=== PATIENT | female | born 1945 | race Caucasian/White ===

== ENCOUNTER 2024-02-22 15:32 | Observation (INO) ==
[2024-02-22 17:16] LABS: INR 0.97 (0.83-1.13)
[2024-02-22 17:23] LABS: Urine Appearance Clear; Urine Bilirubin Negative (Negative); Urine Blood 1+ (Negative); Urine Color Light-Yellow; Urine Glucose Negative (Negative); Urine Ketones Trace (Negative); Urine Nitrite Negative (Negative); Urine Protein Trace (Negative); Urine Specific Gravity 1.025 (1.002-1.030); Urine Urobilinogen Negative (Negative); Urine pH 5.5 (5.0-8.0)
[2024-02-22 17:35] LABS: Urine Bacteria Absent /HPF (Absent); Urine Red Blood Cell 2+(6-10/hpf) /HPF (0-Trace); Urine Squamous Epithelial Cell Present /HPF (Absent); Urine White Blood Cell Trace(0-5/hpf) /HPF (0-Trace)
[2024-02-22 17:51] LABS: ALT 18 U/L (7-52); Albumin 3.9 g/dL (3.2-5.2); Albumin/Globulin Ratio 1.6 (1-3); Alkaline Phosphatase 80 U/L (35-149); Blood Urea Nitrogen 20 mg/dL (6-24); C Reactive Protein 35.64 mg/L (<8.01); CO2 Carbon Dioxide 28 mmol/L (22-32); Calcium 10.5 mg/dL (8.6-10.3); Chloride 103 mmol/L (101-111); Creatinine, Serum 1.13 mg/dL (0.51-0.95); Globulin 2.4 g/dL (2-4); Glucose 107 mg/dL (70-100); Sodium 141 mmol/L (135-145); Total Bilirubin 0.3 mg/dL (0.2-1.0); Total Protein 6.3 g/dL (6.4-8.9); eGFR CKD-EPI 49.8 (>60)
[2024-02-22 17:52] LABS: Anion Gap 10 mmol/L (2-16)
[2024-02-22] MEDS ORDERED: Iodixanol (CONTRAST) 320 MG/ML 100 ML SDV IV ONE (19:19)
[2024-02-22] MEDS: Lactated Ringers 1000 ml BAG 1,000 ML IV SCH (20:01)
[2024-02-22 20:10] LABS: ABS Basophils 0.1 10^3/uL (0.0-0.1); ABS Eosinophils 0.4 10^3/uL (0.0-0.5); ABS Monocytes 0.9 10^3/uL (0.0-0.9); ABS Neutrophils 5.2 10^3/uL (1.5-7.6); Eosinophil % 5.3 %; Hematocrit 35.3 % (35-45); Lymphocyte % 13.6 %; Mean Corpuscular Hemoglobin 31.8 pg (27-33); Mean Corpuscular Hgb Conc 34.1 g/dL (31-36); Mean Corpuscular Volume 93.4 fL (80-97); Mean Platelet Volume 7.3 fL (7.5-11.2); Platelet Count 288 10^3/uL (150-450); Red Blood Count 3.78 10^6/uL (3.63-4.92); Red Cell Distribution Width 13.6 % (12-17); White Blood Count 7.6 10^3/uL (3.8-11.8)
[2024-02-22] MEDS: cefTRIAXone 1 gm/50 mL D5W 1 GM/50 ML BAG IV ONE (21:23)
[2024-02-22 23:06] LABS: Potassium Redraw 3.3 mmol/L (3.5-5.0)
[2024-02-23] MEDS: Lactated Ringers 1000 ml BAG 1,000 ML IV SCH (00:30)
[2024-02-23] MEDS: KCL 20 MEQ/100 ML IVPREMIX 20 MEQ/100 ML BAG IV ONE (03:48)
[2024-02-23 05:02] LABS: ABS Basophils 0.1 10^3/uL (0.0-0.1); ABS Eosinophils 0.4 10^3/uL (0.0-0.5); ABS Lymphocytes 1.4 10^3/uL (1.0-4.8); ABS Monocytes 0.8 10^3/uL (0.0-0.9); ABS Neutrophils 4.5 10^3/uL (1.5-7.6); Eosinophil % 5.2 %; Hematocrit 32.4 % (35-45); Lymphocyte % 19.2 %; Mean Corpuscular Hemoglobin 31.5 pg (27-33); Mean Corpuscular Hgb Conc 34.1 g/dL (31-36); Mean Corpuscular Volume 92.3 fL (80-97); Mean Platelet Volume 7.4 fL (7.5-11.2); Platelet Count 268 10^3/uL (150-450); Red Blood Count 3.51 10^6/uL (3.63-4.92); White Blood Count 7.1 10^3/uL (3.8-11.8)
[2024-02-23 05:31] LABS: Calcium 9.7 mg/dL (8.6-10.3); Creatinine, Serum 0.96 mg/dL (0.51-0.95); Magnesium 1.7 mg/dL (1.9-2.7); Potassium 4.4 mmol/L (3.5-5.0); eGFR CKD-EPI 60.6 (>60)
[2024-02-23] MEDS: Iodixanol (CONTRAST) 320 MG/ML 100 ML SDV IV ONE (06:46)
[2024-02-23] MEDS: cefTRIAXone 1 gm/50 mL D5W 1 GM/50 ML BAG IV SCH (08:46)
[2024-02-23] MEDS: Morphine 2 MG/ML SYRINGE IV PRN (09:29)
[2024-02-23] MEDS ORDERED: Naloxone 0.4 mg VIAL 0.4 mg/ml 1 ml VIAL IV PRN (16:17)
[2024-02-23] MEDS ORDERED: Lidocaine 2% PF 5 ML VIAL ONE (16:28)
[2024-02-23] MEDS ORDERED: Propofol 10 MG/ML 20 ML BTL ONE (16:28)
[2024-02-23] MEDS ORDERED: fentaNYL 100 mcg/2 ml 50 MCG/ML VIAL ONE (16:29)
[2024-02-23 17:20] LABS: Erythrocyte Sed Rate 34 mm/Hr (0-29)
[2024-02-24 10:12] VITALS: BP 150/74
== END 2024-02-24 12:10 | disposition home health service (06) ==
LOC: ED 15:32 → EDHOLD 15:32 → SUATTDRO 21:06 → SSU 02-23 12:01
PROVIDERS: ADMIT Student in an Organized Health Care Education/Training Program; ATTEND Hospitalist